=== PATIENT | male | born 1940 | race African-American/Black ===

== ENCOUNTER 2021-11-21 16:26 | Emergency (ER) | payer MEDICARE ==
[~2021-11-21] VITALS: Ht 165.1 cm; Wt 56.0 kg
[~2021-11-21 16:26] MED LIST: AMLODIPINE PO; CHLO25TA27 PO; CHOL100044 PO; CYAN-50 PO; DULO30CA2 PO; FISH OIL PO; FOLI-43 PO; HYDR-523 PO; MAGN500C4 PO; RIVA20TA PO; VALS160T2 PO; VITAMIN E PO
[2021-11-21 16:40] VITALS: BP 127/73
== END 2021-11-21 19:45 | disposition left against medical advice (07) ==
LOC: ER 16:26
DX: Z53.21 Procedure and treatment not carried out due to patient leaving prior to being seen by health care provider (principal); I11.9 Hypertensive heart disease without heart failure; Z95.0 Presence of cardiac pacemaker

== ENCOUNTER 2021-12-22 13:45 | Inpatient (IN) | payer BC, MEDICARE ==
[~2021-12-22] VITALS: Ht 170.2 cm; Wt 62.1 kg
[2021-12-22] VITALS (10 sets, daily range): BP systolic 120–154; BP diastolic 69–92
[2021-12-22] MEDS ORDERED: LASIX (14:07)
[2021-12-22] MEDS ORDERED: IPRATROPIUM BROMIDE (0.02%) 0.5MG/2.5ML NEB HHN STA (14:38)
[2021-12-22] MEDS ORDERED: METHYLPREDNISOLONE SOD SUCC 125 MG/2 ML VIAL IV STA (14:38)
[2021-12-22] MEDS ORDERED: ALBUTEROL (0.083%) 2.5MG/3ML NEB HHN STA (14:38)
[2021-12-22] MEDS ORDERED: ASPIRIN 81MG TABLET PO ONE (14:45)
[2021-12-22] MEDS ORDERED: LEVOFLOXACIN 750MG PREMIX 150 ML IV ONE (14:45)
[2021-12-22] MEDS: VANCOMYCIN 1G PREMIX 200 ML IV SCH ×2 (15:15→17:00)
[2021-12-22 16:30] LABS: BASOPHILS % 1.1 % (0.0-2.0); EOSINOPHILS % 2.6 % (0.0-5.0); HEMATOCRIT. 31.9 % (42.0-52.0); HEMOGLOBIN. 9.1 g/dL (14.0-18.0); LYMPHOCYTES % 23.3 % (20.0-50.0); MEAN CORPUSCULAR HEMOGLOBIN 34.8 pg (28.0-32.0); MEAN CORPUSCULAR VOLUME 122.2 fL (80.0-94.0); MEAN PLATELET VOLUME 6.6 fl (7.4-10.4); MONOCYTES % 9.3 % (2.0-8.0); NEUTROPHILS % 63.7 % (40.0-76.0); PLATELET 172 x1000/uL (130-400); RED BLOOD CELL COUNT 2.61 mill/uL (4.7-6.1); RED CELL DISTRIBUTION WIDTH 15.4 % (11.6-14.6)
[2021-12-22 16:33] LABS: CHLORIDE 61 mEq/L (98-107)
[2021-12-22 16:36] LABS: INR 1.2; PROTHROMBIN TIME 12.6 sec (9.6-11.0)
[2021-12-22 17:03] LABS: CLARITY URINE CLEAR (CLEAR); COLOR URINE YELLOW (YELLOW); KETONES URINE NEGATIVE (NEGATIVE); LEUKOCYTE ESTERASE URINE NEGATIVE (NEGATIVE); NITRITE URINE NEGATIVE (NEGATIVE); OCCULT BLOOD URINE NEGATIVE (NEGATIVE); PH URINE 7.5 (4.5-8.0); PROTEIN URINE NEGATIVE (NEGATIVE); SPECIFIC GRAVITY URINE 1.008 (1.005-1.030); UROBILINOGEN URINE 0.2 E.U./dL (0.2-1.0)
[2021-12-22 17:48] LABS: PLATELET ESTIMATE NORMAL
[2021-12-22] MEDS ORDERED: MAGNESIUM 1 G PREMIX 100 ML IV ONE (18:00)
[2021-12-22] MEDS ORDERED: SODIUM CHLORIDE 0.9% 1,000 ML IV ONE (18:00)
[2021-12-22] MEDS ORDERED: KCL 20MEQ/100ML PREMIX 100 ML IV ONE (18:00)
[2021-12-22] MEDS ORDERED: POTASSIUM CHLORIDE 20MEQ TABLET SR PO ONE (18:00)
[2021-12-22] MEDS ORDERED: CALCIUM GLUCONATE 100MG/ML 10ML VIAL IV ONE (18:15)
[2021-12-22 22:12] LABS: BG CARBOXYHEMOGLOBIN 0.2 % (0.5-1.5); BG DEOXYHEMOGLOBIN 2.3 % (0.0-5.0); BG FRACTION INSPIRED OXYGEN 32; BG HCO3 ACT 21.6 mmol/L (22.0-26.0); BG METHEMOGLOBIN 0.1 % (0.0-1.5); BG OXYGEN SATURATION 97.7 % (92.0-98.5); BG OXYHEMOGLOBIN 97.4 % (94.0-97.0); BG PCO2 37.3 mmHg (35.0-45.0); BG PH 7.381 (7.350-7.450); BG PO2 108.6 mmHg (75.0-100.0); BG TOTAL HEMOGLOBIN 12.1 g/dL (12.0-18.0); BG VENT MODE NASAL CANNULA
[2021-12-22 22:50] LABS: CHLORIDE 103 mEq/L (98-107)
[2021-12-22 22:58] LABS: BETA HYDROXYBUTYRATE 0.1 mMol/L (0.0-0.3); PHOSPHORUS 2.6 mg/dL (2.5-4.9)
[2021-12-22 23:06] LABS: HEMATOCRIT. 34.7 % (42.0-52.0); HEMOGLOBIN. 11.9 g/dL (14.0-18.0); MEAN CORPUSCULAR VOLUME 102.4 fL (80.0-94.0); MEAN PLATELET VOLUME 7.1 fl (7.4-10.4); PLATELET 226 x1000/uL (130-400); RED BLOOD CELL COUNT 3.39 mill/uL (4.7-6.1); RED CELL DISTRIBUTION WIDTH 13.8 % (11.6-14.6)
[2021-12-22] MEDS ORDERED: DEXTROSE 50% WATER 50ML SYRINGE IV PRN (23:30)
[2021-12-22] MEDS ORDERED: POTASSIUM CHLORIDE 20MEQ TABLET SR PO NR (23:30)
[2021-12-23] VITALS (65 sets, daily range): BP systolic 78–154; BP diastolic 31–103
[2021-12-23] MEDS ORDERED: PIPERACILLIN/TAZOBACTAM 3.375GM/50ML PREMIX IV SCH
[2021-12-23 00:16] LABS: PLATELET ESTIMATE NORMAL
[2021-12-23 04:54] LABS: BASOPHILS % 0.2 % (0.0-2.0); HEMATOCRIT. 32.2 % (42.0-52.0); LYMPHOCYTES % 8.9 % (20.0-50.0); MEAN CORPUSCULAR HEMOGLOBIN 34.5 pg (28.0-32.0); MEAN CORPUSCULAR VOLUME 101.3 fL (80.0-94.0); MEAN PLATELET VOLUME 7.3 fl (7.4-10.4); MONOCYTES % 6.4 % (2.0-8.0); NEUTROPHILS % 84.5 % (40.0-76.0); PLATELET 231 x1000/uL (130-400); RED BLOOD CELL COUNT 3.18 mill/uL (4.7-6.1); RED CELL DISTRIBUTION WIDTH 13.5 % (11.6-14.6)
[2021-12-23 05:27] LABS: CHLORIDE 105 mEq/L (98-107)
[2021-12-23] MEDS: BLOOD SUGAR DIAGNOSTIC STRIP TEST SCH ×4 (06:08→21:00)
[2021-12-23] MEDS: INSULIN LISPRO 100 UNITS/ML SUBCUT SCH ×4 (07:00→21:00)
[2021-12-23] MEDS: HEPARIN 5000 UNITS/ML VIAL SUBCUT SCH ×3 (09:00→22:18)
[2021-12-23] MEDS: FAMOTIDINE 20MG/2ML VIAL IV SCH ×2 (09:09→22:17)
[2021-12-23] MEDS ORDERED: MAGNESIUM 1 G PREMIX 100 ML IV NR (10:45)
[2021-12-23] MEDS: LEVOFLOXACIN 500MG TABLET PO SCH (11:55)
[2021-12-23] MEDS ORDERED: CLONIDINE 0.1MG TABLET PO PRN (13:45)
[2021-12-23] MEDS ORDERED: ACETAMINOPHEN 325MG TABLET PO PRN (13:45)
[2021-12-23] MEDS: METHYLPREDNISOLONE SOD SUCC 40 MG/ML VIAL IV SCH ×2 (14:13→22:17)
[2021-12-23] MEDS ORDERED: LORAZEPAM 1MG TABLET PO PRN (14:15)
[2021-12-23 14:55] LABS: T4 FREE 1.04 ng/dL (0.76-1.46)
[2021-12-23] MEDS ORDERED: LEVOFLOXACIN 500MG PREMIX 100 ML IV SCH (15:00)
[2021-12-23] MEDS: IPRATROPIUM/ALBUTEROL 0.5-3(2.5)MG/3ML NEB HHN SCH ×2 (15:21→21:14)
[2021-12-23 15:37] LABS: VITAMIN B12 SERUM 206 pg/mL (211-911)
[2021-12-23 16:55] LABS: *AMPHETAMINES SCREEN URINE NEGATIVE (NEGATIVE); *BARBITURATES SCREEN URINE NEGATIVE (NEGATIVE); *BENZODIAZEPINES SCREEN URINE NEGATIVE (NEGATIVE); *COCAINE SCREEN URINE NEGATIVE (NEGATIVE); CANNABINOID URINE SCREEN PRESUMTIVE POSITIVE (NEGATIVE); METHADONE URINE SCREEN NEGATIVE (NEGATIVE); OPIATES URINE SCREEN PRESUMTIVE POSITIVE (NEGATIVE); PHENCYCLIDINE URINE SCREEN NEGATIVE (NEGATIVE)
[2021-12-23 21:37] LABS: CREATINE KINASE MB FRACTION 10.6 ng/mL (0.5-3.6)
[2021-12-24] VITALS (10 sets, daily range): BP systolic 130–175; BP diastolic 70–134
[2021-12-24] MEDS: IPRATROPIUM/ALBUTEROL 0.5-3(2.5)MG/3ML NEB HHN SCH ×5 (00:53→21:25)
[2021-12-24] MEDS: BLOOD SUGAR DIAGNOSTIC STRIP TEST SCH ×4 (06:13→21:00)
[2021-12-24] MEDS: METHYLPREDNISOLONE SOD SUCC 40 MG/ML VIAL IV SCH (06:47)
[2021-12-24 07:03] LABS: CREATINE KINASE MB FRACTION 11.5 ng/mL (0.5-3.6)
[2021-12-24] MEDS: INSULIN LISPRO 100 UNITS/ML SUBCUT SCH ×4 (07:20→21:00)
[2021-12-24] MEDS: FAMOTIDINE 20MG/2ML VIAL IV SCH ×2 (08:14→21:56)
[2021-12-24] MEDS: HEPARIN 5000 UNITS/ML VIAL SUBCUT SCH ×2 (08:31→21:58)
[2021-12-24 09:33] LABS: BG CARBOXYHEMOGLOBIN 0.5 % (0.5-1.5); BG DEOXYHEMOGLOBIN 7.9 % (0.0-5.0); BG HCO3 ACT 24.5 mmol/L (22.0-26.0); BG METHEMOGLOBIN 0.2 % (0.0-1.5); BG OXYHEMOGLOBIN 91.4 % (94.0-97.0); BG PCO2 43.8 mmHg (35.0-45.0); BG PH 7.366 (7.350-7.450); BG PO2 65.3 mmHg (75.0-100.0); BG SAMPLE SITE RIGHT BRACHIAL; BG TOTAL HEMOGLOBIN 13.1 g/dL (12.0-18.0); BG VENT MODE ROOM AIR
[2021-12-24] MEDS: LEVOFLOXACIN 500MG TABLET PO SCH ×2 (12:43→12:45)
[2021-12-24 12:46] LABS: CHLORIDE 103 mEq/L (98-107); MEAN CORPUSCULAR HEMOGLOBIN 33.9 pg (28.0-32.0); MEAN CORPUSCULAR VOLUME 101.5 fL (80.0-94.0); MEAN PLATELET VOLUME 7.3 fl (7.4-10.4); PLATELET 274 x1000/uL (130-400); RED BLOOD CELL COUNT 3.94 mill/uL (4.7-6.1); RED CELL DISTRIBUTION WIDTH 13.9 % (11.6-14.6)
[2021-12-24 12:50] LABS: HEMOGLOBIN. 13.4 g/dL (14.0-18.0)
[2021-12-24 13:33] LABS: PLATELET ESTIMATE NORMAL
[2021-12-24] MEDS: THIAMINE HCL 100MG TABLET PO SCH (21:56)
[2021-12-24] MEDS: MEMANTINE HCL 5MG TABLET PO SCH (21:56)
[2021-12-24] MEDS: DULOXETINE HCL 20MG DR CAPSULE PO SCH (21:56)
[2021-12-24] MEDS: LEVOFLOXACIN 500MG PREMIX 100 ML IV SCH (21:57)
[2021-12-24] MEDS: NICOTINE 7MG PATCH TD SCH (22:21)
[2021-12-25] VITALS (12 sets, daily range): BP systolic 120–192; BP diastolic 68–97
[2021-12-25] MEDS: IPRATROPIUM/ALBUTEROL 0.5-3(2.5)MG/3ML NEB HHN SCH ×5 (01:35→20:39)
[2021-12-25] MEDS: LORAZEPAM 0.5MG TABLET PO PRN ×2 (02:35→21:33)
[2021-12-25] MEDS: BLOOD SUGAR DIAGNOSTIC STRIP TEST SCH ×4 (06:50→21:34)
[2021-12-25] MEDS: INSULIN LISPRO 100 UNITS/ML SUBCUT SCH ×4 (08:45→21:00)
[2021-12-25] MEDS: HEPARIN 5000 UNITS/ML VIAL SUBCUT SCH ×2 (09:00→21:35)
[2021-12-25] MEDS: DULOXETINE HCL 20MG DR CAPSULE PO SCH (09:59)
[2021-12-25] MEDS: METHYLPREDNISOLONE SOD SUCC 40 MG/ML VIAL IV SCH (09:59)
[2021-12-25] MEDS: FAMOTIDINE 20MG TABLET PO SCH ×2 (09:59→21:33)
[2021-12-25] MEDS: THIAMINE HCL 100MG TABLET PO SCH (09:59)
[2021-12-25] MEDS: MEMANTINE HCL 5MG TABLET PO SCH ×2 (09:59→21:33)
[2021-12-25] MEDS: NICOTINE 7MG PATCH TD SCH (09:59)
[2021-12-25] MEDS: LEVOFLOXACIN 500MG PREMIX 100 ML IV SCH (21:54)
[2021-12-26] VITALS (12 sets, daily range): BP systolic 97–136; BP diastolic 49–102
[2021-12-26] MEDS: IPRATROPIUM/ALBUTEROL 0.5-3(2.5)MG/3ML NEB HHN SCH ×6 (01:00→20:10)
[2021-12-26] MEDS: BLOOD SUGAR DIAGNOSTIC STRIP TEST SCH ×4 (07:05→21:42)
[2021-12-26] MEDS: INSULIN LISPRO 100 UNITS/ML SUBCUT SCH ×4 (07:05→21:00)
[2021-12-26] MEDS: FAMOTIDINE 20MG TABLET PO SCH ×2 (08:32→21:42)
[2021-12-26] MEDS: METHYLPREDNISOLONE SOD SUCC 40 MG/ML VIAL IV SCH (08:32)
[2021-12-26] MEDS: THIAMINE HCL 100MG TABLET PO SCH (08:32)
[2021-12-26] MEDS: MEMANTINE HCL 5MG TABLET PO SCH ×2 (08:32→21:43)
[2021-12-26] MEDS: DULOXETINE HCL 20MG DR CAPSULE PO SCH (08:32)
[2021-12-26] MEDS: HEPARIN 5000 UNITS/ML VIAL SUBCUT SCH ×2 (08:33→21:44)
[2021-12-26] MEDS: NICOTINE 7MG PATCH TD SCH (08:33)
[2021-12-26 08:54] LABS: CHLORIDE 102 mEq/L (98-107)
[2021-12-26 09:04] LABS: BASOPHILS % 0.2 % (0.0-2.0); EOSINOPHILS % 0.5 % (0.0-5.0); HEMATOCRIT. 36.4 % (42.0-52.0); HEMOGLOBIN. 12.3 g/dL (14.0-18.0); LYMPHOCYTES % 22.1 % (20.0-50.0); MEAN CORPUSCULAR HEMOGLOBIN 34.5 pg (28.0-32.0); MEAN CORPUSCULAR VOLUME 101.7 fL (80.0-94.0); MEAN PLATELET VOLUME 7.6 fl (7.4-10.4); MONOCYTES % 9.7 % (2.0-8.0); NEUTROPHILS % 67.5 % (40.0-76.0); PLATELET 255 x1000/uL (130-400); RED BLOOD CELL COUNT 3.58 mill/uL (4.7-6.1); RED CELL DISTRIBUTION WIDTH 13.6 % (11.6-14.6)
[2021-12-26] MEDS ORDERED: SODIUM POLYSTYRENE SULFONATE 15 G/60 ML BOT PO NR (11:15)
[2021-12-26] MEDS ORDERED: LEVOFLOXACIN 500MG TABLET PO SCH ×2 (21:00)
[2021-12-26] MEDS: LORAZEPAM 0.5MG TABLET PO PRN (21:46)
[2021-12-27] VITALS (9 sets, daily range): BP systolic 111–160; BP diastolic 65–96
[2021-12-27] MEDS: IPRATROPIUM/ALBUTEROL 0.5-3(2.5)MG/3ML NEB HHN SCH ×3 (00:31→10:08)
[2021-12-27] MEDS: INSULIN LISPRO 100 UNITS/ML SUBCUT SCH ×2 (06:47→12:20)
[2021-12-27] MEDS: BLOOD SUGAR DIAGNOSTIC STRIP TEST SCH ×2 (06:47→12:41)
[2021-12-27] MEDS: THIAMINE HCL 100MG TABLET PO SCH (08:04)
[2021-12-27] MEDS: HEPARIN 5000 UNITS/ML VIAL SUBCUT SCH (08:04)
[2021-12-27] MEDS: NICOTINE 7MG PATCH TD SCH (08:04)
[2021-12-27] MEDS: METHYLPREDNISOLONE SOD SUCC 40 MG/ML VIAL IV SCH (08:04)
[2021-12-27] MEDS: MEMANTINE HCL 5MG TABLET PO SCH (08:05)
[2021-12-27] MEDS: FAMOTIDINE 20MG TABLET PO SCH (08:05)
[2021-12-27] MEDS: DULOXETINE HCL 20MG DR CAPSULE PO SCH (08:05)
[2021-12-27] MEDS ORDERED: P20 MT (09:52)
[2021-12-27] MEDS ORDERED: CYM20 PO (09:52)
[2021-12-27] MEDS ORDERED: ALBU18HF2 IH (09:52)
[2021-12-27] MEDS ORDERED: THIA100T72 PO (09:52)
[2021-12-27] MEDS ORDERED: MEMA5TAB7 PO (09:52)
[2021-12-27] MEDS ORDERED: CYANOCOBALAMIN 1000MCG/ML VIAL IM NR (14:45)
[2021-12-28] MEDS ORDERED: CYANOCOBALAMIN 1000MCG/ML VIAL IM SCH (09:00)
== END 2021-12-27 15:46 | disposition home health service (06) | DRG 189 ==
LOC: ER 13:45 → MICUSO 18:03 → 3WST 12-23 18:18
PROVIDERS: ADMIT Internal Medicine; ATTEND Internal Medicine
PROC: 4A00X4Z Measurement of Central Nervous Electrical Activity, External Approach (ICD-10-PCS; principal; 2021-12-25)
DX: J96.20 Acute and chronic respiratory failure, unspecified whether with hypoxia or hypercapnia (principal); J44.1 Chronic obstructive pulmonary disease with (acute) exacerbation; E87.1 Hypo-osmolality and hyponatremia; L03.116 Cellulitis of left lower limb; L03.115 Cellulitis of right lower limb; R44.0 Auditory hallucinations; D64.9 Anemia, unspecified; E83.42 Hypomagnesemia; E83.51 Hypocalcemia; E87.6 Hypokalemia; F10.10 Alcohol abuse, uncomplicated; F17.210 Nicotine dependence, cigarettes, uncomplicated; I10 Essential (primary) hypertension; I25.10 Atherosclerotic heart disease of native coronary artery without angina pectoris; R62.7 Adult failure to thrive; R44.1 Visual hallucinations; F03.90 Unspecified dementia, unspecified severity, without behavioral disturbance, psychotic disturbance, mood disturbance, and anxiety; Z79.01 Long term (current) use of anticoagulants; Z68.21 Body mass index [BMI] 21.0-21.9, adult; Z79.899 Other long term (current) drug therapy; Z88.0 Allergy status to penicillin; Z91.199 Patient's noncompliance with other medical treatment and regimen due to unspecified reason
CPT/HCPCS: 36415; 36600; 71045; 80048; 80053; 80305; 81003; 82010; 82375; 82553; 82607; 82805; 82962; 83036; 83605; 83735; 83880; 84100; 84145; 84439; 84443; 84484; 85025; 93005; 93970; 94618; 94640; 95816; 97116; 97162; 97535; 99291; J0610; J1644; J1815; J1956; J2920; J2930; J3370; J3420; J3475; J3480; J3490; J7030